=== PATIENT | male | born 1975 | race Caucasian/White ===

== ENCOUNTER 2020-02-15 21:49 | Emergency (ER) | payer OTHER, SELFPAY ==
[2020-02-15 21:51] VITALS: BP 146/87; PULSE 83; RESP 16; TEMP 37.2; O2SAT 99; BMI 26.6
[2020-02-15 22:00] VITALS: BP 141/78; PULSE 82; RESP 16; O2SAT 99
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
[2020-02-15 22:30] VITALS: BP 143/80; PULSE 84; RESP 17; O2SAT 99
--- NOTE | 2020-02-15 23:05 | PC.NURSE ---
Dr Caban at bedside suturing pt
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
[2020-02-15 23:19] VITALS: BP 138/78; PULSE 80; RESP 14; TEMP 37.2; O2SAT 99
== END 2020-02-15 23:20 | disposition home or self-care (01) ==
PROVIDERS: Emergency Provider Emergency Medicine; PCP Family Medicine
DX: S51.012A Laceration without foreign body of left elbow, initial encounter (principal); S50.02XA Contusion of left elbow, initial encounter; W45.8XXA Other foreign body or object entering through skin, initial encounter; W22.8XXA Striking against or struck by other objects, initial encounter; Y92.019 Unspecified place in single-family (private) house as the place of occurrence of the external cause; Z23 Encounter for immunization; F17.210 Nicotine dependence, cigarettes, uncomplicated
CPT/HCPCS: 12001; 73080; 90471; 90714; 99283

== ENCOUNTER 2021-04-10 09:38 | Emergency (ER) | payer OTHER, SELFPAY ==
[2021-04-10 09:38] VITALS: BP 139/84; PULSE 76; RESP 18; TEMP 36.4; O2SAT 100; BMI 22.9
--- NOTE | 2021-04-10 10:01 | CT_ITS ---
PROCEDURE INFORMATION: Exam: CT Abdomen And Pelvis Without Contrast Exam date and time: 04/10/2021 10:01 AM Age: 46 years old Clinical indication: Abdominal pain; Flank; Left; Additional info: Left flank pain TECHNIQUE: Imaging protocol: Computed tomography of the abdomen and pelvis without contrast. Radiation optimization: All CT scans at this facility use at least one of these dose optimization techniques: automated exposure control; mA and/or kV adjustment per patient size (includes targeted exams where dose is matched to clinical indication); or iterative reconstruction. COMPARISON: No relevant prior studies available. FINDINGS: Lungs: Calcified granuloma in the lingula. Liver: No mass. Gallbladder and bile ducts: No calcified stones. No ductal dilation. Pancreas: No ductal dilation. Spleen: No splenomegaly. Adrenal glands: Normal. No mass. Kidneys and ureters: There is a 3 mm calculus in the distal left ureter with mild upstream hydroureteronephrosis. Additional bilateral nonobstructing nephrolithiasis, measuring up to 6 mm in the left lower kidney. Stomach and bowel: Colonic diverticulosis without evidence of diverticulitis. Fatty infiltration throughout portions of the colonic woods are likely secondary to old inflammation. No evidence of active colitis. Appendix: No evidence of appendicitis. Intraperitoneal space: No free air. No significant fluid collection. Vasculature: Mild aortic and branch vessel atherosclerosis. Lymph nodes: No enlarged lymph nodes. Urinary bladder: Unremarkable as visualized. Reproductive: Unremarkable as visualized. Bones/joints: No acute fracture. Soft tissues: Unremarkable. Other findings: Evaluation of solid organs and vasculature is suboptimal lacking intravenous contrast. IMPRESSION: 1. There is a 3 mm calculus in the distal left ureter with mild upstream hydroureteronephrosis. 2. Additional nonobstructing bilateral nephrolithiasis.
[2021-04-10 10:06] VITALS: BP 125/86; PULSE 71; O2SAT 96
[2021-04-10 10:11] LABS: Microscopic, Urine URINE MICROSCOPIC (MICROSCOPIC)
[2021-04-10 10:12] LABS: Basophils # 0.1 K/mm3 (0-0.2); Eosinophils # 0.4 K/mm3 (0.0-0.4); Eosinophils % 4.8 % (0.1-12.0); Hematocrit 50.2 % (42.0-52.0); Lymphocytes # 2.5 K/mm3 (0.7-4.5); Lymphocytes % 28.1 % (10-50); Mean Corpuscular HGB Conc 33.9 g/dL (31.8-35.4); Mean Corpuscular Hemoglobin 33.8 pg (27.0-31.2); Mean Corpuscular Volume 99.7 fl (80-94); Mean Platelet Volume 8.8 fl (7.4-10.4); Monocytes # 0.6 K/mm3 (0.1-1.0); Monocytes % 6.2 % (1.7-9.3); Neutrophils # 5.4 K/mm3 (1.8-7.8); Platelet Count 260 K/mm3 (142-424); Red Blood Count 5.03 M/mm3 (4.60-6.20); Red Cell Distribution Width 13.8 % (11.5-17.5)
[2021-04-10 10:14] LABS: Chloride 106 mmol/L (98-107); Sodium 143 mmol/L (136-145)
[2021-04-10 10:17] LABS: Alanine Aminotransferase 24 U/L (12-78); Alkaline Phosphatase 68 U/L (38-126); Aspartate Amino Transferase 30 U/L (17-59); Bilirubin,Total 0.2 mg/dl (0.2-1.3); Blood Urea Nitrogen 13 mg/dl (9-20); Carbon Dioxide 27 mmol/L (22.0-30.0); Creatinine Clearance Estimated 117 mL/min (50-200); Estimated Glomerular Filt Rate 104 ml/min (>60); GFR (African American) 125 ML/MIN (>60)
[2021-04-10 10:18] LABS: Albumin Level 4.3 g/dl (3.5-5.0); Albumin/Globulin Ratio 1.7 (1.1-1.8); Calcium 9.3 mg/dl (8.4-10.2); Globulin 2.6 g/dL (1.3-3.2); Glucose 96 mg/dl (74-100); Lipase 13 U/L (23-300); Total Protein,Serum 6.9 g/dl (6.3-8.2)
[2021-04-10 10:20] LABS: Appearance,Urine CLEAR (Clear); Bilirubin,Urine Negative (Negative); Blood, Urine 3+ (Negative); Color,Urine YELLOW (Yellow); Glucose,Urine (UA) Negative (Negative); Ketones,Urine Negative (Negative); Leukocyte Esterase,Urine Negative (Negative); Nitrate,Urine Negative (Negative); PH,Urine 5.5 (5.0-8.5); Protein,Urine Negative (Negative); Specific Gravity, Urine 1.015 (1.005-1.030); Urobilinogen,Urine 0.2 EU/dl (0.2)
[2021-04-10 10:39] LABS: Squamous Epithelial Cell,Urine Occasional #/hpf (0-5)
--- NOTE | 2021-04-10 10:39 | HMH.EDABDPAI ---
ED Disposition Clinical Impression: Kidney stone on left side Disposition: Home, Self-Care Condition on Discharge: Good Instructions: DI for Kidney Stones Prescriptions: Hydrocod/Acet 5/325 mg [[place] 5/325mg tablet] 1 tab PO Q6HP PRN #12 tab PRN Reason: Moderate Pain Transmission Status: Sent to [facility] Tamsulosin HCl [Flomax 0.4mg capsule] 0.4 mg PO DAILY #7 cap Transmission Status: Pending to [facility] Ondansetron [Zofran 4mg ODT] 4 mg PO TIDP PRN #12 tab PRN Reason: Nausea And Vomiting Transmission Status: Pending to [facility] Referrals: Wilfredo Reyes MD [Primary Care Provider] - - Critical Care Critical Care Time: No Attestation: On 04/10/21, the high probability of a clinically significant, sudden or life threatening deterioration of the following system(s) required my full and direct attention, intervention and personal management. The time I documented below is in addition to time spent performing reported procedures but includes the following listed in this critical care notation. Medical Decision Making - Medical Records Medical records reviewed: Yes: I reviewed the patient's medical records. - Julio Inquiry Pt receiving controlled substance: No Vital Signs: 04/10/21 09:38 04/10/21 10:06 Temperature 97.6 F Temperature Source Oral Pulse Rate 71 Pulse Rate [Left Radial] 76 Respiratory Rate 18 Blood Pressure 125/86 Blood Pressure [Right Arm] 139/84 Blood Pressure Mean [Right Arm] 102 Blood Pressure Source [Right Arm] Automatic Cuff Blood Pressure Position [Right Arm] Sitting 02 Sat by Pulse Oximetry 100 96 Oxygen Delivery Method Room Air - Lab Data Lab Results 04/10/21 09:50: Urine Color Yellow, Urine Appearance Clear, Urine pH 5.5, Ur Specific Byl[place] 1.015, Urine Protein Negative, Urine Glucose (UA) Negative, Urine Ketones Negative, Urine Blood 3+, Urine Nitrate Negative, Urine Bilirubin Negative, Urine Urobilinogen 0.2, Ur Leukocyte Esterase Negative, Urine RBC 10-20, Urine WBC 3-5, Ur Squamous Epith Cells Occasional, Urine Bacteria None 04/10/21 09:50: WBC 9.0, RBC 5.03, Hgb 17.0, Hct 50.2, MCV 99.7 H, MCH 33.8 H, MCHC 33.9, RDW 13.8, Plt Count 260, MPV 8.8, Neut % (Auto) 60.0, Lymph % (Auto) 28.1, Ballard % (Auto) 6.2, Eos % (Auto) 4.8, Baso % (Auto) 1.0, Neut # (Auto) 5.4, Lymph # (Auto) 2.5, Ballard # (Auto) 0.6, Eos # (Auto) 0.4, Baso # (Auto) 0.1 04/10/21 09:50: Sodium 143, Potassium 4.0, Chloride 106, Carbon Dioxide 27, Anion Gap 14.0, BUN 13, Creatinine 0.80, Estimated Creat Clear 117, Estimated GFR 104, Est GFR ( Amer) 125, Glucose 96, Calcium 9.3, Total Bilirubin 0.2, AST 30, ALT 24, Alkaline Phosphatase 68, Total Protein 6.9, Albumin 4.3, Globulin 2.6, Albumin/Globulin Ratio 1.7, Lipase 13 L Result diagrams: 04/10/21 09:50 04/10/21 09:50 Orders (Tests/Meds): ED MEDICATIONS Discontinued Medications Generic Name Dose Route Start Last Admin Trade Name Freq PRN Reason Stop Dose Admin Sodium Chloride 1,000 mls @ 999 mls/hr 04/10/21 10:15 04/10/21 10:04 Sod Chlor 0.9% 1000ml Bag IV 04/10/21 11:15 999 mls/hr .Q1H1M WILFREDO Administration Ketorolac Tromethamine 30 mg 04/10/21 10:02 04/10/21 10:04 Ketorolac 30mg/Ml Vial IV 04/10/21 10:03 30 mg ONCE ONE Administration Morphine Sulfate 4 mg 04/10/21 10:03 04/10/21 10:04 Morphine 4mg/Ml Syringe IV 04/10/21 10:04 4 mg ONCE ONE Administration Ondansetron HCl 4 mg 04/10/21 10:03 04/10/21 10:04 Ondansetron 4mg/2ml Vial IV 04/10/21 10:04 4 mg ONCE ONE Administration - CT Data CT Scan: Abdomen, Pelvis Time Received: 11:[address] Reviewed: Yes: I have reviewed the patient's CT results, I have viewed the radiologist's interpretation Findings Narrative: IMPRESSION: 1. There is a 3 mm calculus in the distal left ureter with mild upstream hydroureteronephrosis. 2. Additional nonobstructing bilateral nephrolithiasis.
[2021-04-10 12:03] VITALS: BP 122/72; PULSE 74; RESP 18; TEMP 36.4; O2SAT 97
== END 2021-04-10 12:04 | disposition home or self-care (01) ==
PROVIDERS: Emergency Provider Emergency Medicine; PCP Family Medicine
DX: N20.0 Calculus of kidney (principal); F41.8 Other specified anxiety disorders; F17.210 Nicotine dependence, cigarettes, uncomplicated
CPT/HCPCS: 74176; 80053; 81001; 83690; 85025; 96365; 96375; 99283; J2405

== ENCOUNTER → 2021-04-13 15:44 | Outpatient (CLI) | payer OTHER, SELFPAY ==
[2021-04-28 12:46] LABS: Specimen Type Not Provided
[2021-04-28 12:47] LABS: Ca oxalate dihydrate 100
== END ==
PROVIDERS: Visit Provider Nurse Practitioner Family
DX: N20.0 Calculus of kidney (principal)
CPT/HCPCS: 82370

== ENCOUNTER → 2021-06-27 11:28 | Outpatient (CLI) | payer OTHER, SELFPAY | PROVIDERS: PCP Family Medicine; Visit Provider Nurse Practitioner | DX: Z20.822 Contact with and (suspected) exposure to COVID-19 (principal); U07.1 COVID-19 | CPT/HCPCS: C9803; U0003; U0005 ==

== ENCOUNTER → 2021-09-12 11:31 | Outpatient (CLI) | payer OTHER, SELFPAY | PROVIDERS: Visit Provider Nurse Practitioner | DX: Z20.822 Contact with and (suspected) exposure to COVID-19 (principal) | CPT/HCPCS: C9803; U0003; U0005 ==

== ENCOUNTER 2021-10-24 09:56 | Emergency (ER) | payer OTHER, SELFPAY ==
[2021-10-24 10:38] VITALS: BP 142/96; PULSE 86; RESP 16; TEMP 36.8; O2SAT 97; BMI 23.6
--- NOTE | 2021-10-24 10:41 | XR_ITS ---
FINAL REPORT CLINICAL HISTORY: fall on 10/21/21 FINDINGS: CERVICAL SPINE SERIES. 5 views demonstrate no fracture. There is postoperative change of fusion at C6-7. Mild kyphosis is seen centered at C5-6. There is no subluxation. IMPRESSION: No acute fracture. Reviewed, Interpreted and Dictated by Jacoby Nagy III, MD Transcribed by Deisy Shafer Authenticated by Jacoby Nagy III, MD on 10/24/2021 12:20:25 PM [facility]
--- NOTE | 2021-10-24 10:41 | XR_ITS ---
FINAL REPORT CLINICAL HISTORY: fall on 10/21/21 with LOC FINDINGS: FACIAL BONES 3 views No obvious fracture is present. Paranasal sinuses are grossly clear. Nasal septum is midline. IMPRESSION: No definite fracture. Should symptoms persist, CT recommended as a more sensitive exam. Reviewed, Interpreted and Dictated by Jacoby Nagy III, MD Transcribed by Deisy Shafer Authenticated by Jacoby Nagy III, MD on 10/24/2021 12:20:26 PM [facility]
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
--- NOTE | 2021-10-24 12:03 | ECG_ITS ---
APPROVED REPORT Exam: Resting ECG HR:79 bpm ECG Measurements Heart Rate 79 AXES MD 152 P 78 QRSd 83 QRS 83 QT 352 T 49 QTc 386 Conclusion SINUS RHYTHM MINIMAL VOLTAGE CRITERIA FOR LVH, CONSIDER NORMAL VARIANT [MEETS CRITERIA IN ONE OF: R(aVL), S(V1), R(V5), R(V5/V6)+S(V1)] BORDERLINE ECG UNCONFIRMED REPORT Electronically signed by : Mele Cohn MD 10/24/2021 19:47:33
[2021-10-24 12:41] VITALS: BP 142/96; PULSE 86; RESP 16; TEMP 36.8
== END 2021-10-24 12:44 | disposition home or self-care (01) ==
PROVIDERS: Emergency Provider Nurse Practitioner Family; PCP Family Medicine
DX: R55 Syncope and collapse (principal); M54.2 Cervicalgia; F32.A Depression, unspecified; F41.9 Anxiety disorder, unspecified; W17.89XA Other fall from one level to another, initial encounter
CPT/HCPCS: 70150; 72050; 93005; 93041; 99213; G0463

== ENCOUNTER → 2021-11-03 08:36 | Outpatient (CLI) | payer OTHER, SELFPAY ==
--- NOTE | 2021-11-03 | CA_ITS ---
APPROVED REPORT Exam: Exercise Treadmill Technologist: Mayet Orosco, Ht: 5 ft 9 in Wt: 160 lbs BSA: 1.88 m2 HR: 83 bpm BP: 136/90 mmHg Rhythm: NSR, rightward axis, ST abns inferiorly, voltage criteria for LVH Medical History Medications: Asa,,,,, TAMSULOSIN,,,,, Celexa,,,,, ONdanESETRAN,,,,, Hydrocodone tylenol,,,,, Stress Test Details Test: Jacky HR Resting HR: 96 bpm Max Heart Rate (APMHR): 173.493045 bpm Max HR Achieved: 150 bpm Target HR (85% APMHR): 147.414381 bpm % of APMHR: 86.71 Recovery HR: 135 bpm BP Resting BP: 117/91 mmHg Max BP: 172/90 mmHg Recovery BP: 164.0/88.0 mmHg ECG Resting ECG: NSR, rightward axis. ST abns inferiorly, voltage criteria for LVH Clinical Exercise duration: 06:58 min Highest Stage Achieved: Exercise capacity: 10.1 METs Stress ECG Conclusion During jacky protocol pt exercised total of 6:58. Pt experinced chest tightness and dyspnea. No arrhythmias noted. Exaggeration og baseline ST abns in inferior leads with 1-1.5mm horizontal and downsloping ST depression. Chest tightness with equivocal EKG changes for ischemia. GXT only. METs 10.1. Electronically signed by : Mele Cohn MD 11/03/2021 17:26:51
--- NOTE | 2021-11-03 08:37 | CA_ITS ---
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, S/p COVID 06/2021 2D Dimensions IVSd 0.95 cm LVEF (Visual) 69.30 % PWd 0.98 cm LA Volume 41.10 mL LVDd 5.42 cm LA Volume Index 21.90 mL/m2 (M/F) 16-34 LVDs 3.29 cm Aortic Root 2.95 cm Left Atrium 2.51 cm LVOT 2.03 cm (M/F) 1.5-2.5 M-Mode Dimensions RVDd 1.68 cm (0.9-2.6) LA Diam 3.09 cm (1.9-4.0) LVDd 5.40 cm (3.5-5.7) Ao Diam 2.91 cm (2.0-3.7) LVDs 3.62 cm (3.5-5.7) IVSd 0.97 cm (0.6-1.1) PWd 0.94 cm (0.6-1.1) EF (Teich) 60.90% EPSs 0.47 cm FS 33.00% EDV (Teich) 141.30 mL TAPSE 2.06 (<1.7) ESV (Teich) 55.20 mL LV Diastology E Decel Time 227.00 (160-240 msec) E/A Ratio 1.24 MED E' 9.40 (< 7 cm/sec) MED A' 9.00 cm/s E'/MED E' Ratio 8.28 (>14) LAT E' 11.50 (<10 cm/sec) LAT A' 8.60 cm/s E/LAT E' Ratio 6.77 (>14) Pulm Vein s 46.00 cm/sec Pulm Vein d 26.00 cm/sec Ar-A Duration 97.00 msec Aortic Valve LVOT Max 102.00 (70-110 cm/s) LVOT VTI 17.68 cm AoV Peak Rainer. 139.00 (50-130 cm/s) AO Peak GR. 7.80 mmHg AO Mean GR. 4.10 (<5 mmHg) AO VTI 28.23 (18-25 cm) JEN (VTI) 2.03 (2.5-4.5 cm2) Mitral Valve MV A Velocity 63.00 (40-130 cm/s) E/A Ratio 1.24 MV Decel. Time 227.00 (160-240 ms) MV Mean Gr. 1.70 (<2mmHg) MV PHT 67.00 ms Pulmonary Valve PV Peak Velocity 61.00 (50-150 cm/s) Left Ventricle Left atrium normal size, left ventricle is normal size, there is no concentric left ventricular hypertrophy, visually estimated ejection fraction 55% with no regional wall motion abnormality, diastolic parameters are within normal range. Right Ventricle Right atrium and right ventricle are normal size and contractility. Aortic Valve Aortic valve is grossly normal, there is no aortic stenosis or aortic insufficiency. Mitral Valve Mitral valve grossly normal, there is trace mitral regurgitation. Tricuspid Valve Tricuspid valve grossly normal, there is trace tricuspid regurgitation. Tricuspid regurgitation jet velocity is inadequate for calculation of the right ventricular systolic pressure. Pulmonic Valve Pulmonic valve is poorly visualized. Great Vessels Aortic root is normal size. Inferior vena cava is normal size with normal inspiratory collapse. Pericardium No significant pericardial effusion noted. Conclusion 1. Normal left ventricular size, preserved left ventricular systolic function, visually estimated ejection fraction 55% with no regional wall motion abnormality, diastolic parameters are within normal range. 2. Trace mitral and tricuspid regurgitation. 3. No significant pericardial effusion. 4. Inferior vena cava normal size with normal inspiratory collapse. Electronically signed by : Claude Moralez MD 11/04/2021 13:05:57
== END ==
PROVIDERS: PCP Family Medicine; Visit Provider Nurse Practitioner Family
DX: R07.9 Chest pain, unspecified (principal)
CPT/HCPCS: 93017; 93306

== ENCOUNTER → 2021-11-15 15:07 | Outpatient (CLI) | payer OTHER, SELFPAY ==
--- NOTE | 2021-11-15 15:10 | XR_ITS ---
FINAL REPORT CLINICAL HISTORY: chest pain/tob use FINDINGS: Two views of the chest were obtained. The heart size and pulmonary vascularity are within normal limits. The mediastinum is normal. There is emphysema in the lung apices. There is no pneumothorax. There are postoperative changes in the lower cervical spine. IMPRESSION: Emphysema in the lung apices. Reviewed, Interpreted and Dictated by Jacoby Nagy III, MD Transcribed by Candi Hunter Authenticated by Jacoby Nagy III, MD on 11/15/2021 04:03:05 PM [facility]
== END ==
PROVIDERS: PCP Family Medicine; Visit Provider Physician Assistant
DX: R07.9 Chest pain, unspecified (principal); I20.9 Angina pectoris, unspecified; I10 Essential (primary) hypertension; R55 Syncope and collapse; R94.39 Abnormal result of other cardiovascular function study
CPT/HCPCS: 71046

== ENCOUNTER → 2021-11-19 08:38 | Outpatient (CLI) | payer OTHER, SELFPAY ==
[2021-11-19 09:09] LABS: Basophils # 0.1 K/mm3 (0-0.2); Eosinophils # 0.5 K/mm3 (0.0-0.4); Hematocrit 50.9 % (42.0-52.0); Hemoglobin 17.1 g/dL (14.1-18.0); Lymphocytes # 2.6 K/mm3 (0.7-4.5); Lymphocytes % 29.4 % (10-50); Mean Corpuscular HGB Conc 33.6 g/dL (31.8-35.4); Mean Corpuscular Volume 104.2 fl (80-94); Mean Platelet Volume 9.3 fl (7.4-10.4); Monocytes # 0.5 K/mm3 (0.1-1.0); Monocytes % 5.7 % (1.7-9.3); Neutrophils # 5.2 K/mm3 (1.8-7.8); Neutrophils % 57.9 % (37.0-80.0); Platelet Count 317 K/mm3 (142-424); Red Blood Count 4.88 M/mm3 (4.60-6.20); Red Cell Distribution Width 13.4 % (11.5-17.5)
[2021-11-19 09:46] LABS: Chloride 103 mmol/L (98-107); Potassium 4.2 mmoL/L (3.5-5.1); Sodium 140 mmol/L (136-145)
[2021-11-19 09:49] LABS: Anion Gap 10.2 mEq/L (5-15); Blood Urea Nitrogen 10 mg/dl (9-20); Carbon Dioxide 31 mmol/L (22.0-30.0); Estimated Glomerular Filt Rate 104 ml/min (>60); GFR (African American) 125 ML/MIN (>60)
[2021-11-19 09:50] LABS: Calcium 8.9 mg/dl (8.4-10.2); Glucose 95 mg/dl (74-100)
== END ==
PROVIDERS: PCP Family Medicine; Visit Provider Physician Assistant
DX: Z01.812 Encounter for preprocedural laboratory examination (principal); Z11.52 Encounter for screening for COVID-19; R07.9 Chest pain, unspecified; R55 Syncope and collapse; I10 Essential (primary) hypertension; R94.39 Abnormal result of other cardiovascular function study
CPT/HCPCS: 36415; 80048; 85025; C9803; U0003; U0005

== ENCOUNTER 2021-11-21 08:54 | Day surgery (SDC) | payer OTHER, SELFPAY ==
[2021-11-21] VITALS (13 sets, daily range): BP systolic 88–124; BP diastolic 55–80; PULSE 67–90; RESP 18; TEMP 36.7; O2SAT 93–97; BMI 25.0
--- NOTE | 2021-11-21 | IR_ITS ---
APPROVED REPORT Patient Location: Outpatient [place] [employer]: OWEN Blackburn RT (R) PROCEDURES Left heart catheterization Left ventriculogram Selective coronary angiogram INDICATION Abnormal Myoview, Angina pectoris, Informed consent was obtained prior to the procedure. COMPLICATIONS NONE Estimated Blood Loss: LESS THAN 10 ML TECHNIQUE One percent lidocaine used to anesthetize the right anterior aspect of the wrist. The right radial artery was accessed via the Seldinger technique. A 6 Latvian sheath was placed in the right radial artery. 2.5 mg of verapamil, 800 mcg of nitroglycerin, 1mg Lidocaine and 5000 U Heparin were given through the arterial sheath. The papa catheter was also used to perform left heart catheterization, left ventriculogram and selective coronary angiogram. At the end of the procedure the sheath was removed good hemostasis was achieved using Traclet band, patient was transferred to the postop holding area in stable condition. ANGIOGRAPHIC RESULTS The left main artery Normal The left anterior descending artery Mild proximal mid vessel 10% luminal irregularities The circumflex artery Dominant 10% luminal irregularities The right coronary artery Nondominant 10% luminal irregularities The TRAN ventriculogram reveals Preserved 55% The left ventricular end-diastolic pressure Nondiagnostically measured IMPRESSION Mild multiple limiting coronary disease Preserved ejection fraction PLAN 1. Risk factor modification 2. Medical management Electronically signed by : Omega Pitts MD 11/21/2021 10:47:09
== END 2021-11-21 14:12 | disposition home or self-care (01) ==
LOC: CATHLAB 08:56
PROVIDERS: PCP Family Medicine; Visit Provider Internal Medicine
DX: I25.118 Atherosclerotic heart disease of native coronary artery with other forms of angina pectoris (principal); I10 Essential (primary) hypertension; R55 Syncope and collapse; F17.210 Nicotine dependence, cigarettes, uncomplicated
CPT/HCPCS: 93458; 99152; C1725; C1769; J1644; Q9967

== ENCOUNTER 2021-11-22 17:43 | Emergency (ER) | payer OTHER, SELFPAY ==
[2021-11-22 17:45] VITALS: BP 158/97; PULSE 74; RESP 16; TEMP 36.8; O2SAT 99; BMI 25.4
--- NOTE | 2021-11-22 17:54 | PC.NURSE ---
ED MD at
--- NOTE | 2021-11-22 17:57 | PC.NURSE ---
Dr. Pitts paged
--- NOTE | 2021-11-22 17:57 | PC.NURSE ---
speaking with Dr. Pitts
--- NOTE | 2021-11-22 17:59 | HMH.EDGENADL ---
ED Disposition Clinical Impression: Hand edema Disposition: Home, Self-Care Condition on Discharge: Good Additional Instructions: Use warm compresses on the right wrist. Tylenol for pain. See Dr. Pitts in his office tomorrow at 10 AM. Referrals: Wilfredo Reyes MD [Primary Care Provider] - - Critical Care Critical Care Time: No Attestation: On 11/22/21, the high probability of a clinically significant, sudden or life threatening deterioration of the following system(s) required my full and direct attention, intervention and personal management. The time I documented below is in addition to time spent performing reported procedures but includes the following listed in this critical care notation. Medical Decision Making - Julio Inquiry Pt receiving controlled substance: No - Physician Consults Physician Consulted: Gisselle Time: 18:00 Reason -: Cardiology Eval/Care Comment/Response: Advises patient to use warm compresses and Tylenol and see him in the office tomorrow at 10 AM. 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 Last night his right hand began swelling. Today he also noticed that his right hand looks purple. Denies any pain in the hand. Denies any loss of sensation or tingling. - Related Data Previous Rx's Medication Instructions Recorded cyclobenzaprine 10 mg tablet 10 mg PO TID PRN #60 tab 10/25/21 aspirin 81 mg tablet,delayed 81 mg PO DAILY #30 tab 11/15/21 release lisinopril 5 mg tablet 5 mg PO DAILY #30 tab 11/15/21 metoprolol succinate 25 mg 25 mg PO DAILY #30 tab 11/15/21 tablet,extended release 24 hr Allergies Allergy/AdvReac Type Severity Reaction Status Date / Time No Known Allergies Allergy Verified 11/15/21 14:26 [facility] History - Hepatitis A Screen Attestation statement:: This patient has been screened for Hepatitis A risk factors. I have reviewed the patient's past medical history: Yes Medical History: Reports:: Anxiety, Depression Denies:: Cancer, Diabetes Mellitus Type 1, Diabetes Mellitus Type 2, Internal Pacemaker, MRSA, Seizures Other Surgeries: Yes: Hernia Repair. No: Pacemaker Amputation: No Fractures: No Comment: Right ear. Neck - Social History Smoking Status: Current every day smoker Tobacco Type: cigarettes # Packs/Day (cigarettes): 1 Alcohol Intake: former Substance Use Type: denies use Occupational Status: employed Housing: house Household Members: spouse, children - Psychiatric History Pschychiatric History:: Reports:: Anxiety, Depression Family Hx:: No significant family history, Cancer ROS Obtained: Yes Systems reviewed as appropriate & no additional complaints - Constitutional Constitutional: Denies fever(s) - Musculoskeletal Musculoskeletal: Reports as per HPI - Neurologic Neurologic: Denies numbness, Denies weakness Physical Exam - General General appearance: alert, in no apparent distress - Respiratory Respiratory exam: Absent: respiratory distress - Cardiovascular Cardiovascular exam: Present: regular rate, normal rhythm - Expanded Upper Extremity Exam Right Comment: Temperature of both hands feels equal. Right hand shows some mild edema. Slight pallor of the hand. Diffuse tenderness of his right wrist. Palpable radial and ulnar pulses, 2+. Normal capillary refill of the digits. Sensation intact in all digits. Able to wiggle all digits. 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 - Neurological Exam Neurological exam: Present: alert, oriented X3. Absent: motor sensory deficit - Skin Skin exam: Present: warm, dry. Absent: cyanosis
[2021-11-22 18:13] VITALS: BP 158/97; PULSE 70; RESP 16; TEMP 36.8; O2SAT 99
== END 2021-11-22 18:17 | disposition home or self-care (01) ==
PROVIDERS: Emergency Provider Emergency Medicine; PCP Family Medicine
DX: L76.82 Other postprocedural complications of skin and subcutaneous tissue (principal); R60.0 Localized edema; F41.8 Other specified anxiety disorders; I10 Essential (primary) hypertension; F17.210 Nicotine dependence, cigarettes, uncomplicated
CPT/HCPCS: 99281

== ENCOUNTER → 2021-11-23 13:50 | Outpatient (CLI) | payer OTHER, SELFPAY | PROVIDERS: PCP Family Medicine; Visit Provider Internal Medicine | DX: R60.0 Localized edema (principal) | CPT/HCPCS: 93931 ==

== ENCOUNTER → 2021-12-05 09:39 | Outpatient (CLI) | payer OTHER, SELFPAY ==
[2021-12-05 11:59] LABS: Alanine Aminotransferase 23 U/L (12-78); Albumin Level 4.2 g/dl (3.5-5.0); Alkaline Phosphatase 66 U/L (38-126); Aspartate Amino Transferase 27 U/L (17-59); Bilirubin,Direct 0.1 mg/dl (0.0-0.4); Bilirubin,Indirect 0.3 mg/dL (0.0-0.9); Bilirubin,Total 0.4 mg/dl (0.2-1.3); Bilirubin,Unconjugated 0.3 mg/dL (0.0-1.1); Chol/HDL Ratio 5.8 (1-3.5); Cholesterol 185 mg/dl (140-200); HDL Cholesterol 32 mg/dl (40-60); Total Protein,Serum 6.5 g/dl (6.3-8.2); Triglycerides 144 mg/dl (30-150); VLDL Cholesterol 29 mg/dL (0-40)
[2021-12-05 12:10] LABS: Direct LDL Cholesterol 123.85 mg/dL (100-129)
== END ==
PROVIDERS: Visit Provider Physician Assistant
DX: I25.10 Atherosclerotic heart disease of native coronary artery without angina pectoris (principal); R06.00 Dyspnea, unspecified; R55 Syncope and collapse; I10 Essential (primary) hypertension; Z72.0 Tobacco use; Z82.49 Family history of ischemic heart disease and other diseases of the circulatory system
CPT/HCPCS: 36415; 80061; 80076

== ENCOUNTER → 2021-12-13 13:40 | Outpatient (CLI) | payer OTHER, SELFPAY ==
--- NOTE | 2021-12-13 13:44 | XR_ITS ---
FINAL REPORT CLINICAL HISTORY: wrist pain FINDINGS: 3 views of the right wrist were obtained. There is no acute fracture or dislocation. The joint spaces are intact. There is no soft tissue abnormality. IMPRESSION: No acute abnormality. Reviewed, Interpreted and Dictated by Mandeep Miller MD Transcribed by Gaston Morrison Authenticated by Mandeep Miller MD on 12/13/2021 03:16:23 PM [facility]
--- NOTE | 2021-12-13 13:44 | XR_ITS ---
FINAL REPORT CLINICAL HISTORY: wrist pain FINDINGS: 3 views of the left wrist were obtained. There is no acute fracture or dislocation. The joint spaces are intact. There is no soft tissue abnormality. IMPRESSION: No acute abnormality. Reviewed, Interpreted and Dictated by Mandeep Miller MD Transcribed by Gaston Morrison Authenticated by Mandeep Miller MD on 12/13/2021 03:16:22 PM [facility]
== END ==
PROVIDERS: PCP Family Medicine; Visit Provider Orthopaedic Surgery
DX: M25.532 Pain in left wrist (principal); M25.531 Pain in right wrist; G56.03 Carpal tunnel syndrome, bilateral upper limbs
CPT/HCPCS: 73110

== ENCOUNTER 2021-12-21 17:01 | Outpatient (RCR) | payer OTHER, SELFPAY ==
--- NOTE | 2021-12-21 18:17 | HMH.PTOPEV ---
PT Outpatient Evaluation Rehab PT Outpatient Evaluation Start: 12/21/21 17:55 Freq: Status: Active Protocol: Document 12/21/21 17:55 KATHLEEN (Rec: 12/21/21 18:17 KATHLEEN [id number]) Electronically Signed By Herminio Tavera, PT 12/21/21 17:55 Outpatient Therapy Subjective History Subjective History Patient is a 46 year old male presenting to outpatient PT with reports of chronic B wrist/hand pain starting approx 1 year ago of insidious onset. Patient referred with diagnosis of B CTS and B trigger finger of the 3rd digit. 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 CTS R>L, TF L>R. Comorbidities include hx of HTN, double hernia sx and CS 5 /6 fusion (patient questionable). 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 Symptom Type Sharp,Numbness,Tingling Symptoms Relieved By Rest/Positioning,OTC Meds, Activity Prior Functional Limitations None Current Functional Limitations Housework Symptom Description Constant but Variable Level of pain today (0-10) 5 Pain scale - at its best (0-10) 3 Pain scale - at its worst (0-10) 10 Wrist/Hand Eval Palpation Tenderness/Visual Exam Wrist pain bilateral tenderness wrist exam standard bilateral Wrist swelling bilateral Flexibility Deficits Wrist Extensors Muscle Length (R) Moderate Tightness,(L) Moderate Tightness Wrist Flexors Muscle Length (R) Moderate Tightness,(L) Moderate Tightness Wrist Range of Motion Left Wrist Extension Active Range of Motion ( 50 degrees) Wrist Flexion Active Range of Motion ( 58 degrees) Wrist Radial Deviation Active Range of 34 Motion (degrees) Wrist Ulnar Deviation Active Range of 26 Motion (degrees) Right Wrist Extension Active Range of Motion ( 34 degrees) Wrist Flexion Active Range of Motion ( 52 degrees) Wrist Radial Deviation Active Range of 44 Motion (degrees) Wrist Ulnar Deviation Active Range of 18 Motion (degrees) Finger Range of Motion Left Middle Finger Fing
== END 2021-12-21 17:05 | disposition home or self-care (01) ==
LOC: PT 17:01
PROVIDERS: PCP Family Medicine; Visit Provider Orthopaedic Surgery
DX: G56.03 Carpal tunnel syndrome, bilateral upper limbs (principal); M65.332 Trigger finger, left middle finger; M65.331 Trigger finger, right middle finger
CPT/HCPCS: 97163

== ENCOUNTER 2022-04-13 09:39 | Emergency (ER) | payer OTHER, SELFPAY ==
[2022-04-13 10:05] VITALS: BP 137/90; PULSE 72; RESP 19; TEMP 36.6; O2SAT 95; BMI 22.9
--- NOTE | 2022-04-13 10:34 | EXP.UTC ---
Discharge Plan Disposition Patient Disposition: Home, Self-Care Condition: Good Prescriptions Prescriptions: No Action aspirin [Adult Low Dose Aspirin] 81 mg tablet,delayed release (DR/EC) 81 mg PO DAILY Qty: 30 5RF cyclobenzaprine 10 mg tablet 10 mg PO TID PRN (Reason: muscle spasm) Qty: 60 0RF bupropion HCl [Wellbutrin SR] 150 mg tablet sustained-release 12 hr 150 mg PO BID Qty: 87 0RF Rx Instructions: Take 1 tab daily for 3 days then increase to 1 tab twice daily nicotine 21-14-7 mg/24 hr patch, TD daily, sequential 1 patch TRANSDERMA Q24H Qty: 42 0RF lisinopril 5 mg tablet 5 mg PO DAILY Qty: 30 5RF metoprolol succinate [Toprol XL] 25 mg tablet extended release 24 hr 25 mg PO DAILY Qty: 30 5RF Referrals Referrals: Wilfredo Reyes MD [Primary Care Provider] - Enter time for follow up Activity Restrictions/Add. Instructions Additional Instructions/Restrictions: Make sure to watch your blood sugar to see if it may be dropping Make sure to eat breakfast prior to work to help keep your blood sugar normal Call your Family Doctor and make appointment for further work up and evaluation Go to ER immediately if symptoms return or if any life threatening symptoms Clinical Impressions Clinical Impression: Light headedness Stand Alone Forms Stand Alone Forms: Work/School Release Instructions Patient Instructions: DI for Hypoglycemia Discharge ED [place] [facility] General Stated complaint: shaky,lightheaded Mode of Arrival: Ambulatory Source of Information: Patient Limitations: No Limitations Time Seen by Provider: 04/13/22 10:40 Description of Symptoms (Recalled from Triage Doc. by RN): PATIENT C/O SHAKING, LIGHT-HEADED, AND DIZZINESS THAT STARTED AT WORK TODAY. 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 feeling shaky, light headed and flush States that they sit him down and he drink a pop while waiting on his to show up and he started feeling better Denies chest pain Denies blurry vision denies history of diabetes or low blood sugar Related Data Previous Rx's Medication Instructions Recorded cyclobenzaprine 10 mg tablet 10 mg PO TID PRN muscle spasm #60 10/25/21 tabs aspirin 81 mg tablet,delayed 81 mg PO DAILY #30 tabs 11/15/21 release (Adult Low Dose Aspirin) bupropion HCl 150 mg tablet,12 hr 150 mg PO BID #87 tabs 12/05/21 sustained-release (Wellbutrin SR) lisinopril 5 mg tablet 5 mg PO DAILY #30 tabs 12/05/21 metoprolol succinate 25 mg 25 mg PO DAILY #30 tabs 12/05/21 tablet,extended release 24 hr (Toprol XL) nicotine 1 patch transdermal Q24H #42 12/05/21 21mg/24hr-14mg/24hr-7mg/24hr daily patches transderm patches,sequentl Allergies Allergy/AdvReac Type Severity Reaction Status Date / Time No Known Allergies Allergy Verified 03/07/22 15:09 Worker's Comp Is this a Worker's Comp case?: No PFSH PFS Surgical History H/O hernia repair History of neck surgery History of tonsillectomy Tympanic tube insertion Social History Smoking Status: Current every day smoker tobacco type: cigarettes packs per day: 1 alcohol intake: former substance use type: denies use current occupational status: employed Travel in the last 8 weeks: None household members: spouse and children housing: house current occupational exposures/hazards: No caffeine: Yes ROS Obtained: Yes All systems reviewed & no additional complaints except as documented and Yes Systems reviewed as appropr
[2022-04-13 10:52] LABS: POC Glucose,Bedside 96 (70-110)
[2022-04-13 11:00] VITALS: BP 137/90; PULSE 72; RESP 19; TEMP 36.6; O2SAT 95
== END 2022-04-13 11:02 | disposition home or self-care (01) ==
PROVIDERS: Emergency Provider Nurse Practitioner; PCP Family Medicine
DX: R42 Dizziness and giddiness (principal)
CPT/HCPCS: 82962; 99212; G0463

== ENCOUNTER → 2022-12-15 14:58 | Outpatient (CLI) | payer OTHER, SELFPAY ==
--- NOTE | 2022-12-15 15:03 | XR_ITS ---
FINAL REPORT CLINICAL HISTORY: right knee pain COMPARISON: none FINDINGS: RIGHT KNEE: 4 views of the right knee obtained. There is no acute fracture or dislocation. There is mild medial compartment degenerative change. There is no soft tissue abnormality. IMPRESSION: No acute bony abnormality. Reviewed, Interpreted and Dictated by Jacoby Nagy III, MD Transcribed by Diane Pichardo Authenticated and [facility]
== END ==
PROVIDERS: PCP Family Medicine; Visit Provider Physician Assistant
DX: M25.561 Pain in right knee (principal)
CPT/HCPCS: 73562

== ENCOUNTER 2022-12-25 12:43 | Emergency (ER) | payer OTHER, SELFPAY ==
[2022-12-25 12:50] VITALS: BP 138/86; PULSE 86; RESP 17; TEMP 36.8; O2SAT 100; BMI 24.2
--- NOTE | 2022-12-25 12:50 | XR_ITS ---
FINAL REPORT CLINICAL HISTORY: PAIN. NO KNOWN ACCIDENT FINDINGS: LEFT KNEE Three views demonstrate no acute fracture or dislocation. Minimal degenerative changes are seen in the medial compartment. No acute soft tissue abnormality is seen. IMPRESSION: No acute process. Reviewed, Interpreted and Dictated by Ketan Tabor MD Transcribed by Roxanne Elizabeth Authenticated and [facility]
--- NOTE | 2022-12-25 13:11 | EXP.UTC ---
Discharge Plan Disposition Patient Disposition: Home, Self-Care Condition: Good Referrals Follow up/Referrals: Wilfredo Reyes MD [Primary Care Provider] - See instructions Activity Restrictions/Add. Instructions Additional Instructions/Restrictions: *weight bearing as tolerated *RICE, Rest the extremity, Ice 15-20 minutes 3-4 times daily, Compress- wear the saurav wrap as discussed as much as possible to help reduce swelling and pain, Elevate the extremity when at rest *Saurav wrap is for support and help control swelling, use it except in the shower. Be sure that is not to tight but not to loose either *Elevate when resting? *Ibuprofen 600-800mg every 6-8 hours as needed for pain an inflammation. If need something more can take Tylenol in between doses of Ibuprofen to help Immediately follow up with your family doctor for new or worsening of symptoms, or no noticeable improvement over the next 3-5 days Clinical Impressions Clinical Impression: Knee strain Qualifiers: Encounter type: initial encounter Laterality: left Qualified Code(s): S86.912A - Strain of unspecified muscle(s) and tendon(s) at lower leg level, left leg, initial encounter Stand Alone Forms Stand Alone Forms: Work/School Release Instructions Patient Instructions: Knee Sprain, How to Use an Elastic Bandage-Knee Sprain, DI for Knee Sprain Discharge ED Provider: Sona Salter [facility] [place] HPI General Stated complaint: No known accident, LT knee pain Mode of Arrival: Ambulatory Source of Information: Patient Limitations: No Limitations Time Seen by Provider: 12/25/22 13:11 Description of Symptoms (Recalled from Triage Doc. by RN): PATIENT C/O SWELLING AND PAIN TO LEFT KNEE SINCE THIS MORNING. NO KNOWN INJURY HEENT Symptoms (Recalled from RN notes): No Resp Symptoms (Recalled from RN notes): No Skin Symptoms (Recalled from RN notes): No MS Symptoms (Recalled from RN notes): Yes Functional Status (Recalled from RN notes): WNL History of Present Illness Provider Complaint: Patient states that he woke up this morning with his left knee hurting and swollen States that he hasnt done anything to hurt it that he knows of but hurts when he bends it or moves it certain ways Related Data Allergies Allergy/AdvReac Type Severity Reaction Status Date / Time No Known Allergies Allergy Verified 12/15/22 14:20 Worker's Comp Is this a Worker's Comp case?: No [facility] Disclaimer: The information contained in this section may have been updated after the patient was seen, as this information can be updated by other users. Surgical History H/O hernia repair History of neck surgery History of tonsillectomy Tympanic tube insertion Social History Smoking Status: Current every day smoker tobacco type: cigarettes packs per day: 1 alcohol intake: former substance use type: denies use current occupational status: employed Travel in the last 8 weeks: None household members: spouse and children housing: house current occupational exposures/hazards: No caffeine: Yes ROS Obtained: Yes All systems reviewed & no additional complaints except as documented and Yes Systems reviewed as appropriate & no additional complaints except as documented Constitutional Constitutional: Reports system reviewed and no additional complaints, except as documented and Reports as per HPI ENT Ears, Nose, Mouth, and Throat: Reports system reviewed and no additional complaints, except as documented and Reports as per HPI Cardiovascular Cardiovascular: Reports system reviewed and no additional complaints, except as documented and Reports as per HPI Respiratory Respiratory: Reports system reviewed and no additional complaints, except as documented and Reports as per HPI Gastrointestinal Gastrointestingal: Reports system reviewed and no additional complaints, except as documented and as per H
[2022-12-25 13:53] LABS: Uric Acid 5.5 mg/dl (3.5-8.5)
[2022-12-25 14:09] VITALS: BP 138/86; PULSE 86; RESP 17; TEMP 36.8; O2SAT 100
== END 2022-12-25 14:42 | disposition home or self-care (01) ==
PROVIDERS: Emergency Provider Nurse Practitioner; PCP Family Medicine
DX: S83.92XA Sprain of unspecified site of left knee, initial encounter (principal); F17.210 Nicotine dependence, cigarettes, uncomplicated; X58.XXXA Exposure to other specified factors, initial encounter
CPT/HCPCS: 73562; 84550; 99212; 99214; G0463

== ENCOUNTER 2023-06-11 11:35 | Emergency (ER) | payer SELFPAY ==
[2023-06-11 11:50] VITALS: BP 142/89; PULSE 78; RESP 20; TEMP 36.8; O2SAT 95; BMI 23.6
--- NOTE | 2023-06-11 11:54 | XR_ITS ---
FINAL REPORT CLINICAL HISTORY: Nonspecific cough COMPARISON: 11/15/2021 FINDINGS: Two views of the chest were obtained. The heart size and pulmonary vascularity are within normal limits. The mediastinum is normal. The lungs are hyperinflated consistent with COPD. No acute pulmonary abnormality is identified. There is no pneumothorax. The bony thorax is intact. IMPRESSION: No active cardiopulmonary disease. Reviewed, Interpreted and Dictated by Jacoby Nagy III, MD Transcribed by Diane Pichardo Authenticated and [facility]
[2023-06-11 11:59] LABS: Coronavirus 19, PCR Not Detected (NotDetected); Influenza A, PCR Not Detected (NotDetected); Influenza B, PCR Not Detected (NotDetected)
--- NOTE | 2023-06-11 12:21 | PC.NURSE ---
Notified RT of breathing treatment order
--- NOTE | 2023-06-11 12:21 | HMH.EDGENADL ---
Discharge Plan Disposition Patient Disposition: Home, Self-Care Condition: Good Prescriptions Prescriptions: New prednisone 20 mg tablet 40 mg PO BID 5 Days Qty: 20 0RF amoxicillin-pot clavulanate 875-125 mg tablet 1 tab PO BID 5 Days Qty: 10 0RF Referrals Follow up/Referrals: Wilfredo Reyes MD [Primary Care Provider] - See instructions Activity Restrictions/Add. Instructions Additional Instructions/Restrictions: Call your family doctor to establish care for this visit to the emergency department and schedule follow-up within 48 hours to ensure improvement. If you have any worsening of your condition or any other concerning signs or symptoms, return to the emergency department or your primary care doctor for further evaluation. Antibiotic and prednisone for 5 days as prescribed. Clinical Impressions Clinical Impression: COPD exacerbation Stand Alone Forms Stand Alone Forms: Work/School Release Discharge ED Provider: Jacob Trevino General Adult HPI General Chief complaint: Upper Respiratory Infection Stated complaint: RUNNY NOSE, SOA, BODY ACHES Time Seen by Provider: 06/11/23 11:42 Mode of Arrival: Ambulatory Source of Information: Patient Limitations: No Limitations Description of Symptoms (Recalled from ER Triage Doc. by RN): pt to ed c/o cough/congestion, body aches. pt states symptoms have persisted x1 week. History of Present Illness HPI narrative: 48-year-old male with daily tobacco use, likely COPD, CAD, hypertension presenting with multiple complaints. Patient states that for about 3 days he has been getting progressively achy. Muscle aches that are mild, does not take any medications for them. No sick contacts, no fevers, but patient has been coughing and has cough productive of green and brown sputum. This has been getting worse as well. Nausea without vomiting as well as diarrhea that is nonbloody. Related Data Previous Rx's Medication Instructions Recorded amoxicillin 875 mg-potassium 1 tab PO BID 5 days #10 tabs 06/11/23 clavulanate 125 mg tablet prednisone 20 mg tablet 40 mg PO BID 5 days #20 tabs 06/11/23 Allergies Allergy/AdvReac Type Severity Reaction Status Date / Time No Known Allergies Allergy Verified 12/15/22 14:20 [facility] Disclaimer: The information contained in this section may have been updated after the patient was seen, as this information can be updated by other users. Surgical History H/O hernia repair History of neck surgery History of tonsillectomy Tympanic tube insertion Social History Smoking Status: Current every day smoker tobacco type: cigarettes packs per day: 1 alcohol intake: former substance use type: denies use current occupational status: employed Travel in the last 8 weeks: None household members: spouse and children housing: house current occupational exposures/hazards: No caffeine: Yes ROS Obtained: Yes All systems reviewed & no additional complaints except as documented Physical Exam General General appearance: alert and in no apparent distress Head Head exam: atraumatic and normocephalic Eye Eye exam: Present normal appearance, PERRL and EOMI ENT ENT exam: Present mucous membranes moist Neck Neck exam: Present normal inspection, full ROM and trachea midline Respiratory Respiratory exam: Present wheezes (bilateral, worse in RLL); Absent normal lung sounds bilaterally, respiratory distress, stridor, accessory muscle use or prolonged expiratory phase Cardiovascular Cardiovascular exam: Present regular rate and normal rhythm Abdominal Exam Abdominal exam: Present soft; Absent distention, tenderness, guarding, rebound, rigidity or normal bowel sounds Extremities Exam Extremities exam: Absent edema Neurological Exam Neurological exam: Present alert, oriented X3, CN II-XII intact and normal gait; Absent mot
[2023-06-11 12:33] VITALS: PULSE 75; PULSE 78
--- NOTE | 2023-06-11 12:33 | PC.NURSE ---
RT at BS
[2023-06-11 12:57] VITALS: BP 132/80; PULSE 81; O2SAT 98
[2023-06-11 13:12] VITALS: BP 130/78; PULSE 80; RESP 16; TEMP 36.6; O2SAT 98
== END 2023-06-11 13:13 | disposition home or self-care (01) ==
PROVIDERS: Emergency Provider Emergency Medicine; PCP Family Medicine
DX: J44.1 Chronic obstructive pulmonary disease with (acute) exacerbation (principal); F17.210 Nicotine dependence, cigarettes, uncomplicated; I25.10 Atherosclerotic heart disease of native coronary artery without angina pectoris; I11.9 Hypertensive heart disease without heart failure
CPT/HCPCS: 71046; 87636; 99283

== ENCOUNTER → 2023-06-15 23:23 | Outpatient (CLI) | payer SELFPAY ==
[2023-06-15 18:36] LABS: Basophils # 0.1 K/mm3 (0-0.2); Basophils % 0.7 % (0.1-2.0); Eosinophils # 0.4 K/mm3 (0.0-0.4); Eosinophils % 3.5 % (0.1-12.0); Hematocrit 45.3 % (42.0-52.0); Hemoglobin 16.2 g/dL (14.1-18.0); Lymphocytes # 3.4 K/mm3 (0.7-4.5); Lymphocytes % 31.2 % (10-50); Mean Corpuscular HGB Conc 35.8 g/dL (31.8-35.4); Mean Corpuscular Hemoglobin 35.7 pg (27.0-31.2); Mean Corpuscular Volume 99.7 fl (80-94); Mean Platelet Volume 9.7 fl (7.4-10.4); Monocytes # 0.7 K/mm3 (0.1-1.0); Monocytes % 6.7 % (1.7-9.3); Neutrophils # 6.3 K/mm3 (1.8-7.8); Neutrophils % 57.8 % (37.0-80.0); Platelet Count 269 K/mm3 (142-424); Red Blood Count 4.55 M/mm3 (4.60-6.20); Red Cell Distribution Width 13.4 % (11.5-17.5); White Blood Count 10.9 K/mm3 (4.8-10.8)
[2023-06-15 18:43] LABS: Alanine Aminotransferase 28 U/L (12-78); Albumin Level 4.4 g/dl (3.5-5.0); Albumin/Globulin Ratio 1.8 (1.1-1.8); Alkaline Phosphatase 67 U/L (38-126); Aspartate Amino Transferase 31 U/L (17-59); Bilirubin,Total 0.4 mg/dl (0.2-1.3); Blood Urea Nitrogen 12 mg/dl (9-20); Calcium 9.5 mg/dl (8.4-10.2); Chloride 104 mmol/L (98-107); Chol/HDL Ratio 7.3 (1-3.5); Cholesterol 197 mg/dl (140-200); Estimated Glomerular Filt Rate 120 ml/min (>60); GFR (African American) 145 ML/MIN (>60); Globulin 2.5 g/dL (1.3-3.2); Glucose 94 mg/dl (74-100); HDL Cholesterol 27 mg/dl (40-60); Sodium 139 mmol/L (136-145); Total Protein,Serum 6.9 g/dl (6.3-8.2); Triglycerides 316 mg/dl (30-150); VLDL Cholesterol 63 mg/dL (0-40)
[2023-06-15 18:54] LABS: Direct LDL Cholesterol 126.59 mg/dL (100-129)
[2023-06-15 19:16] LABS: Prostate Specific Ag Screen 0.8 ng/ml (0.0-4.0)
[2023-06-15 19:28] LABS: Carbon Dioxide 26 mmol/L (22.0-30.0)
== END ==
PROVIDERS: PCP Family Medicine; Visit Provider Family Medicine
DX: J44.1 Chronic obstructive pulmonary disease with (acute) exacerbation (principal); Z72.0 Tobacco use
CPT/HCPCS: 80053; 80061; 84443; 85025; G0103

== ENCOUNTER 2023-07-18 16:14 | Emergency (ER) | payer BC, SELFPAY ==
[2023-07-18 16:40] VITALS: BP 125/90; PULSE 77; RESP 18; TEMP 37; O2SAT 98; BMI 24.7
--- NOTE | 2023-07-18 16:46 | XR_ITS ---
PROCEDURE INFORMATION: Exam: XR Lumbosacral Spine Exam date and time: 07/18/2023 5:26 PM Age: 48 years old Clinical indication: Low back pain TECHNIQUE: Imaging protocol: Radiologic exam of the lumbosacral spine. Views: 2 or 3 views. COMPARISON: CT ABDOMEN PELVIS WO CON 04/10/2021 10:24 AM FINDINGS: Bones/joints: Nonspecific lower thoracic wedge deformities without compression injury identified. Vertebral alignment is within normal limits without evidence of subluxation or spondylolisthesis. No evidence of vertebral body compression fractures, lytic or sclerotic lesions. Intervertebral disc spaces are preserved and within normal limits for patient's age. Facet joints are in normal configuration without signs of arthrosis or effusion. Soft tissues: Paravertebral soft tissues appear unremarkable. Other findings: Prevertebral and paravertebral soft tissues appear unremarkable. IMPRESSION: No radiographic evidence for acute spinal abnormality.
--- NOTE | 2023-07-18 16:56 | EXP.UTC ---
Discharge Plan Disposition Patient Disposition: Home, Self-Care Condition: Good Prescriptions Prescriptions: New etodolac 200 mg capsule 200 mg PO Q8H PRN (Reason: pain) Qty: 20 0RF cyclobenzaprine 10 mg tablet 10 mg PO TID PRN (Reason: muscle spasm) Qty: 15 0RF Referrals Follow up/Referrals: Wilfredo Reyes MD [Primary Care Provider] - See instructions Activity Restrictions/Add. Instructions Additional Instructions/Restrictions: *Etodolac yessenia 8hours with meal as needed for pain/inflammation *Remember you had a Toradol shot in the clinic today, which is similar to Etodolac *Not additional anti-inflammatory like ibuprofen, motrin, aleve, advil with the above amount of Etodolac. You can still take Tylenol every 4 hours as needed if you need something else for pain *Ice 20 minutes every 2 hours for the first 48 hours after the initial injury followed by moist heat every 20 minutes 3-4 times a day to affected area *Muscle relaxer every 8 hours as needed for muscle spasms but remember, it WILL cause drowsiness You cannot take it and drive, operate machinery or care for small children. *Keep this area active, no movement leads to more stiffness, However take it easy and avoid heavy lifting pushing or pulling *Follow up with you family doctor if no improvement for further treatment Clinical Impressions Clinical Impression: Low back pain Qualifiers: Chronicity: unspecified Back pain laterality: bilateral Sciatica presence: without sciatica Qualified Code(s): M54.50 - Low back pain, unspecified Stand Alone Forms Stand Alone Forms: Work/School Release Instructions Patient Instructions: Low Back Pain, DI for Low Back Pain Discharge ED Provider: Sona Salter [facility] General Stated complaint: back pain, no accident Mode of Arrival: Ambulatory Source of Information: Patient Limitations: No Limitations Time Seen by Provider: 07/18/23 16:56 Description of Symptoms (Recalled from Triage Doc. by RN): PATIENT C/O LOWER-MID BACK PAIN SINCE YESTERDAY, NO KNOWN INJURY HEENT Symptoms (Recalled from RN notes): No Resp Symptoms (Recalled from RN notes): No Skin Symptoms (Recalled from RN notes): No MS Symptoms (Recalled from RN notes): Yes Functional Status (Recalled from RN notes): WNL History of Present Illness Provider Complaint: Patient states that he was working on a motor on Sunday and had it on a hoist with chain and he pulled it in to line it up and after he started having pain in his lower back area States that it has continued to get worse since yesterday and today it felt like it was spasming up on him so he had to leave work and come in and get it checked Denies radiation of pain and denies loss of control of bowel or bladder Related Data Previous Rx's Medication Instructions Recorded cyclobenzaprine 10 mg tablet 10 mg PO TID PRN muscle spasm #15 07/18/23 tabs etodolac 200 mg capsule 200 mg PO Q8H PRN pain #20 caps 07/18/23 Allergies Allergy/AdvReac Type Severity Reaction Status Date / Time No Known Allergies Allergy Verified 06/15/23 14:36 Worker's Comp Is this a Worker's Comp case?: No [facility] Disclaimer: The information contained in this section may have been updated after the patient was seen, as this information can be updated by other users. Medical History (Updated 07/18/23 @ 18:00 by Sona Salter APRN) COPD (chronic obstructive pulmonary disease) Wheeze Surgical History H/O hernia repair History of neck surgery History of tonsillectomy Tympanic tube insertion Social History Smoking Status: Current every day smoker tobacco type: cigarettes packs per day: 1 alcohol intake: former substance use type: denies use current occupational status: employed Travel in the last 8 weeks: None household members: spouse and children housing: house
[2023-07-18 18:05] VITALS: BP 125/90; PULSE 77; RESP 18; TEMP 37; O2SAT 98
== END 2023-07-18 18:11 | disposition home or self-care (01) ==
PROVIDERS: Emergency Provider Nurse Practitioner; PCP Family Medicine
DX: M54.50 Low back pain, unspecified (principal); M62.830 Muscle spasm of back; F17.210 Nicotine dependence, cigarettes, uncomplicated; J44.9 Chronic obstructive pulmonary disease, unspecified; X50.0XXA Overexertion from strenuous movement or load, initial encounter
CPT/HCPCS: 72100; 96372; 99212; 99214; G0463

== ENCOUNTER 2023-07-22 12:30 | Emergency (ER) | payer BC, SELFPAY ==
[2023-07-22 12:31] VITALS: BP 144/90; PULSE 102; RESP 19; TEMP 36.8; O2SAT 97; BMI 23.6
--- NOTE | 2023-07-22 12:45 | PC.NURSE ---
DR BOWSER AT BEDSIDE
--- NOTE | 2023-07-22 12:48 | CT_ITS ---
PROCEDURE INFORMATION: Exam: CT Lumbar Spine Without Contrast Exam date and time: 07/22/2023 1:28 PM Age: 48 years old Clinical indication: Patient HX: Low back pain after pushing an engine last Sunday. ; Additional info: Midline pain TECHNIQUE: Imaging protocol: Computed tomography of the lumbar spine without contrast. Radiation optimization: All CT scans at this facility use at least one of these dose optimization techniques: automated exposure control; mA and/or kV adjustment per patient size (includes targeted exams where dose is matched to clinical indication); or iterative reconstruction. REPORTING DATA: Count of CT and Cardiac NM exams in prior 12 months: This patient has received 0 known CTs and 0 known cardiac nuclear medicine studies in the 12 months prior to the current study. COMPARISON: CR XR LUMBAR SPINE 2-3V 07/18/2023 5:26 PM FINDINGS: Bones/joints: No acute fracture. Normal alignment. Mild multilevel degenerative disc disease. No significant disc bulge or herniation. No severe spinal canal stenosis. No significant neural foraminal narrowing. Soft tissues: There is 5 mm left inferior pole renal stone and a 3 mm left inferior pole renal stone. No hydroureteronephrosis. Aortic atherosclerosis. IMPRESSION: No acute findings. There is 5 mm left inferior pole renal stone and a 3 mm left inferior pole renal stone. No hydroureteronephrosis.
--- NOTE | 2023-07-22 12:50 | HMH.EDGENADL ---
Discharge Plan Disposition Patient Disposition: Home, Self-Care Prescriptions Prescriptions: New lidocaine 5 % adhesive patch,medicated 1 patch topical Q24H Qty: 15 0RF Rx Instructions: leave on most painful area for up to 12 hrs No Action etodolac 200 mg capsule 200 mg PO Q8H PRN (Reason: pain) Qty: 20 0RF cyclobenzaprine 10 mg tablet 10 mg PO TID PRN (Reason: muscle spasm) Qty: 15 0RF Referrals Follow up/Referrals: Wilfredo Reyes MD [Primary Care Provider] - See instructions Activity Restrictions/Add. Instructions Additional Instructions/Restrictions: At this time it was felt you are safe to be discharged home. If new or worsening symptoms please do not hesitate to return the emergency department. If symptoms persist please follow-up with your family doctor as you are able. Please take your medication as prescribed. Clinical Impressions Clinical Impression: Back pain Discharge ED Provider: Andreas Garrison General Adult HPI General Chief complaint: PAIN Stated complaint: lower back pain Time Seen by Provider: 07/22/23 12:43 Mode of Arrival: Ambulatory Source of Information: Patient Limitations: No Limitations Description of Symptoms (Recalled from ER Triage Doc. by RN): pt presents to ED with c/o lower back pain. pt reports pain began sunday, he went to [facility] on sunday and was given steroid shot and muscle relaxer. pt reports he has been taking medications as prescribed but has had no relief. History of Present Illness HPI narrative: Patient is a 48-year-old male who presents emergency department for evaluation of back pain. Onset was acute, occurring since Sunday, lower back, worse with bending over. Patient does have a history of previous kidney stones, no dysuria or abdominal pain, no flank pain. No other acute complaints at this time. No incontinence or saddle anesthesia. Related Data Previous Rx's Medication Instructions Recorded cyclobenzaprine 10 mg tablet 10 mg PO TID PRN muscle spasm #15 07/18/23 tabs etodolac 200 mg capsule 200 mg PO Q8H PRN pain #20 caps 07/18/23 lidocaine 5 % topical patch 1 patch topical Q24H #15 ea 07/22/23 Allergies Allergy/AdvReac Type Severity Reaction Status Date / Time No Known Allergies Allergy Verified 06/15/23 14:36 [facility] Disclaimer: The information contained in this section may have been updated after the patient was seen, as this information can be updated by other users. Medical History (Updated 07/22/23 @ 14:06 by Andreas Garrison MD) COPD (chronic obstructive pulmonary disease) Wheeze Surgical History H/O hernia repair History of neck surgery History of tonsillectomy Tympanic tube insertion Social History Smoking Status: Current every day smoker tobacco type: cigarettes packs per day: 1 alcohol intake: former substance use type: denies use current occupational status: employed Travel in the last 8 weeks: None household members: spouse and children housing: house current occupational exposures/hazards: No caffeine: Yes ROS Obtained: Yes Systems reviewed as appropriate & no additional complaints except as documented Physical Exam General General appearance: alert and in no apparent distress Head Head exam: atraumatic and normocephalic Eye Eye exam: Present PERRL and EOMI ENT ENT exam: Present mucous membranes moist Neck Neck exam: Present normal inspection Chest Chest inspection: Present normal inspection and symmetric chest wall rise Respiratory Respiratory exam: Present normal lung sounds bilaterally; Absent respiratory distress Cardiovascular Cardiovascular exam: Present regular rate and normal rhythm Abdominal Exam Abdominal exam: Present soft; Absent tenderness Extremities Exam Extremities exam: Present normal inspection and other (5 out of 5 strength bilatera
[2023-07-22 12:51] LABS: Microscopic, Urine URINE MICROSCOPIC (MICROSCOPIC)
[2023-07-22 12:52] LABS: Appearance,Urine CLEAR (Clear); Bilirubin,Urine Negative (Negative); Blood, Urine Negative (Negative); Color,Urine YELLOW (Yellow); Glucose,Urine (UA) Negative (Negative); Ketones,Urine Negative (Negative); Leukocyte Esterase,Urine Negative (Negative); Nitrate,Urine Negative (Negative); PH,Urine 6.5 (5.0-8.5); Protein,Urine Negative (Negative); Specific Gravity, Urine <= 1.005 (1.005-1.030); Urobilinogen,Urine 0.2 EU/dl (0.2)
[2023-07-22 13:04] LABS: Bacteria,Urine Trace /lpf; Squamous Epithelial Cell,Urine Occasional #/hpf (0-5)
--- NOTE | 2023-07-22 13:30 | PC.NURSE ---
pt at radiology
--- NOTE | 2023-07-22 14:03 | PC.NURSE ---
DR BOWSER AT BEDSIDE
[2023-07-22 14:15] VITALS: BP 123/79; PULSE 77; RESP 18; TEMP 36.8; O2SAT 96
== END 2023-07-22 14:16 | disposition home or self-care (01) ==
PROVIDERS: Emergency Provider Emergency Medicine; PCP Family Medicine
DX: M54.50 Low back pain, unspecified (principal); J44.9 Chronic obstructive pulmonary disease, unspecified; F17.210 Nicotine dependence, cigarettes, uncomplicated
CPT/HCPCS: 72131; 81001; 96372; 99284

== ENCOUNTER 2024-05-08 15:15 | Outpatient (CLI) | payer BC, SELFPAY ==
--- NOTE | 2024-05-08 15:19 | XR_ITS ---
FINAL REPORT CLINICAL HISTORY: R Mid foot pain FINDINGS: RIGHT FOOT 3 views of the right foot were obtained. There is no acute fracture or dislocation. Visualized joint spaces are normally aligned. Soft tissues are unremarkable. IMPRESSION: No acute bony abnormality. Reviewed, Interpreted and Dictated by Mandeep Miller MD Transcribed by Deisy Shafer Authenticated and [facility]
== END 2024-05-08 23:59 | disposition home or self-care (01) ==
LOC: RAD 15:17
PROVIDERS: PCP Nurse Practitioner Family; Visit Provider Nurse Practitioner Family
DX: M79.671 Pain in right foot (principal)
CPT/HCPCS: 73630

== ENCOUNTER 2024-10-28 09:00 | Outpatient (CLI) | payer BC, SELFPAY ==
[2024-10-28 19:10] LABS: Coronavirus 19, PCR Not Detected (NotDetected); Human Rhinovirus Not Detected (NotDetected); Influenza A, PCR Not Detected (NotDetected); Influenza B, PCR Not Detected (NotDetected); Respiratory Syncytial Virus Not Detected (NotDetected)
== END 2024-10-28 23:59 | disposition home or self-care (01) ==
LOC: LAB.DROPOF 10-30 09:32
PROVIDERS: PCP Nurse Practitioner; Visit Provider Nurse Practitioner
DX: J06.9 Acute upper respiratory infection, unspecified (principal)
CPT/HCPCS: 87631